=== PATIENT | male | born 1985 | race Caucasian/White ===

== ENCOUNTER 2020-02-07 11:31 | Emergency (ER) | payer BC ==
[~2020-02-07 11:31] MED LIST: FLEXERIL PO; LORTAB 10-325 M1 TAB PO; LORTAB5 OR; NAPROSYN500 MG OR; NAPROSYN500 MG PO; PENICILLIN V P500 MG PO; ULTRAM50 MG PO
[2020-02-07 13:05] VITALS: BP 136/76
== END 2020-02-07 13:05 | disposition home or self-care (01) | DRG 563 ==
LOC: ED 11:31
DX: S93.401A Sprain of unspecified ligament of right ankle, initial encounter (principal); S90.01XA Contusion of right ankle, initial encounter; F17.200 Nicotine dependence, unspecified, uncomplicated; X50.0XXA Overexertion from strenuous movement or load, initial encounter; Y93.89 Activity, other specified; Y92.008 Other place in unspecified non-institutional (private) residence as the place of occurrence of the external cause